=== PATIENT | female | born 1965 | race African-American/Black ===

== ENCOUNTER 2020-08-09 06:32 | Observation (INO) | payer MEDICAID, SELFPAY ==
[~2020-08-09] VITALS: Ht 170.2 cm; Wt 80.8 kg
[2020-08-09] MEDS ORDERED: NS 500 ML IV ONE (07:15)
[2020-08-09 07:42] LABS: BASO % 0.2 % (0.0-1.0); EOS # 0.1 10^3/uL (0.0-0.5); EOS % 0.8 % (0.0-3.0); HEMATOCRIT 34.3 % (36.0-47.0); HEMOGLOBIN 10.1 g/dl (12.0-15.5); LYMPH # 1.5 10^3/uL (1.5-5.0); LYMPH % 24.8 % (24.0-44.0); MEAN CORPUSCULAR HEMOGLOBIN 25.3 pg (27.0-33.0); MEAN CORPUSCULAR HGB CONC 29.4 g/dl (32.0-36.5); MONO # 0.8 10^3/uL (0.0-0.8); MONO % 13.3 % (0.0-5.0); NEUTROPHILS # 3.6 10^3/uL (1.5-8.5); NEUTROPHILS % 60.7 % (36.0-66.0); PLATELET COUNT, AUTOMATED 236 10^3/uL (150-450); RED BLOOD COUNT 3.99 10^6/uL (4.00-5.40); WHITE BLOOD COUNT 5.9 10^3/uL (4.0-10.0)
[2020-08-09 07:55] LABS: INR 0.98; PARTIAL THROMBOPLASTIN TIME 27.4 SECONDS (24.2-38.5); PROTHROMBIN TIME 13.2 SECONDS (12.5-14.3)
[2020-08-09 08:19] LABS: ALBUMIN 3.3 GM/DL (3.2-5.2); ALT/SGPT 11 U/L (12-78); BILIRUBIN,DIRECT < 0.1 MG/DL (0.0-0.2); BILIRUBIN,TOTAL 0.2 MG/DL (0.2-1.0); FREE T4 1.07 NG/DL (0.76-1.46); LIPASE 209 U/L (73-393); TOTAL PROTEIN 7.4 GM/DL (6.4-8.2)
--- NOTE | 2020-08-09 08:19 | REP ---
INDICATION: CHEST PAIN COMPARISON: None. TECHNIQUE: Portable AP view of the chest FINDINGS: The mediastinum and cardiac silhouette are stable and within normal limits for portable technique. The lung valiente are clear without acute consolidation, effusion, or pneumothorax. Skeletal structures are intact. IMPRESSION: No acute cardiopulmonary process appreciated. <Electronically signed by Martir Marion > 08/09/20 0806
[2020-08-09] MEDS ORDERED: MOM 30ML SUSPENSION UDC PO PRN (08:45)
[2020-08-09] MEDS ORDERED: ACETAMINOPHEN TAB 650MG DOSE (2X325MG) PO PRN (08:45)
[2020-08-09] MEDS: ENOXAPARIN 40MG/0.4ML SYRINGE (J1650 PER 10MG) SC SCH (09:41)
[2020-08-09 12:45] VITALS: BP 128/66
--- NOTE | 2020-08-09 14:34 | HPEPDOC ---
[facility] Medical History & Physical Date of Admission Aug 09, 2020 Date of Service: Aug 09, 2020 Attending Physician: DONNELL LUNDY MD History and Physical CHIEF COMPLAINT: Near syncope HISTORY OF PRESENT ILLNESS: 55 yo W with no significant past medical history who recently moved to [place] to live with her daughter who is active in 09/2019 who presented from home with near syncopal episode with prodromal weakness, feeling cold while sweating for a brief moment and felt unwell when she got up to urinate such that she told her daughter she needed to come to the hospital and was brought in by EMS. On probing more, she reports that she has had these near syncopal episodes a few times now especially when exerting especially when straining to defecate. She also reported some supra-pelvic/lower abdominal pain that sometimes take away her breath. She otherwise denies any history of LE edema, palpitations, chest pain, SOB, fever, chills, diarrhea. In the ED, she is hemodynamically stable, afebrile and breathing comfortably on room air. She had an EKG done in the ED that showed 1st degree HB and Morbitz type 1 block and suspicion by the ED physician of type II block. She called Dr. Grijalva who clarified that given the narrow complex QRS this is unlikely to be Morbitz II. Nonetheless he recommended admission to medicine for at least telemetry monitoring and cardiology consult. Troponin was negative, respiratory panel was negative for covid-19, WBC 5.9, Hgb 10.1, platelets 236, LFTs wnl, TSH and free T4 wnl. She had a CXR that was negative for acute pathology. PAST MEDICAL HISTORY: No significant past medical history PAST SURGICAL HISTORY: None SOCIAL HISTORY: Originally from [place]. Moved to [place] from [place]. Lives with her daughter who is active . No smoking, no alcohol, no illicit drug use. FAMILY HISTORY: Mother had HTN. ALLERGIES: Please see below. REVIEW OF SYSTEMS: Pertinent positives as stated above. All other elements of the 12 point ROS were negative otherwise. HOME MEDICATIONS: Please see below. PHYSICAL EXAMINATION: VITAL SIGNS: HDS, normotensive, HR 68, afebrile, 100% on room air. GENERAL APPEARANCE: Well appearing woman, NAD HEENT: NCAT, wearing a hair bonnet, PERRLA, EOMI, MMM, with face mask she re moved for examination CARDIOVASCULAR: RRR, with some skipped beats, no m/r/g LUNGS: CTAB ABDOMEN: Normoactive sounds, no flank pain, soft however with fullness at RLQ, tender suprapubis/pelvic area, no rebound EXTREMITIES: WWP, no LE edema NEUROLOGICAL: CN 2-12 intact, moving all extremities PSYCHIATRIC: AOx3 LABORATORY DATA: summarized above IMAGING: as described above MICROBIOLOGY: Please see below. ASSESSMENT: 55 yo W with no known past medical history who presented with near syncope reporting rare similar events in the past two years and found to be in 1st degree HB with some Wenkebach who is now being admitted for telemetry monitoring and workup, as well as abdominal pain. PLAN: Near syncope: appears to be cardiac, most likely vagal response given the history -Telemetry -TTE -has pacing pads on -cardiology consult with Dr. Grijalva -check BMP and Mag Abdominal pain with R sided fullness: -CT A/P -f/u GI panel sent in the ED -UA negative -f/u BMP DVT ppx: lovenox Dispo: medsurg with tele Vital Signs Vital Signs Date Time Temp Pulse Resp B/P (MAP) Pulse Ox O2 Delivery O2 Flow Rate FiO2 08/09/20 12:45 98.0 73 18 128/66 (86) 100 Room Air Laboratory Data Labs 24H Laboratory Tests 2 08/09/20 07:17: Immature Granulocyte % (Auto) 0.2, Neutrophils (%) (Auto) 60.7, Lymphocytes (%) (Auto) 24.8, Monocytes (%) (Auto) 13.3H, Eosinophils (%) (Auto) 0.8, Basophils (%) (Auto) 0.2, Neutrophils # (Auto) 3.6, Lymphocytes # (Auto) 1.5, Monocytes # (Auto) 0.8, Eosinophils # (Auto) 0.1, Basophils # (Auto) 0.0, Nucleated Red Blood Cells % (auto) 0.0, Prothrombin Time 13.2, Prothromb Time International Ratio 0.98, Activated Partial Thromboplast Time 27.4, Total Bilirubin 0.2, Direct Bilirubin < 0.1, Aspartate Amino Transf (AST/SGOT) 14, Alanine Aminotransferase (ALT/SGPT) 11L, Alkaline Phosphatase 76, Total Protein 7.4, Albumin 3.3, Albumin/Globulin Ratio 0.8L, Lipase 209, Thyroid Stimulating Hormone (TSH) 3.130, Free Thyroxine 1.07, Coronavirus (COVID-19)(PCR) NEGATIVE 08/09/20 08:59: Urine Color STRAW, Urine Appearance CLEAR, Urine pH 6.0, Urine Specific Man[place] 1.003, Urine Protein NEGATIVE, Urine Glucose (UA) NEGATIVE, Urine Ketones NEGATI VE, Urine Blood NEGATIVE, Urine Nitrite NEGATIVE, Urine Bilirubin NEGATIVE, Urine Urobilinogen 0.2, Urine Leukocyte Esterase NEGATIVE, Urine WBC (Auto) 0, Urine RBC (Auto) 0, Urine Hyaline Casts (Auto) 0, Urine Bacteria (Auto) NEGATIVE, Urine Squamous Epithelial Cells 1, Urine Sperm (Auto) CBC/BMP Laboratory Tests 08/09/20 07:17 Microbiology Microbiology 08/09/20 Campylobacter (PCR), Received Pending 08/09/20 Clostridium difficile Toxin A&B PCR, Received Pending 08/09/20 Plesiomonas shigelloides (PCR), Received Pending 08/09/20 Salmonella (PCR)(RAY), Received Pending 08/09/20 Vibrio Species (PCR), Received Pending 08/09/20 Vibrio Cholerae (PCR), Received Pending 08/09/20 Yersinia enterocolitica (PCR), Received Pending 08/09/20 Enteroaggregative E. coli (PCR), Received Pending 08/09/20 Enteropathogenic E. coli (PCR), Received Pending 08/09/20 Enterotoxigenic E. coli (PCR), Received Pending 08/09/20 E. coli Shiga-like Toxin (PCR), Received Pending 08/09/20 Escherichia coli 0157 (PCR), Received Pending 08/09/20 Enteroinvasive E. coli/Shigella PCR, Received Pending 08/09/20 Cryptosporidium (PCR), Received Pending 08/09/20 Cyclospora cayetanensis (PCR), Received Pending 08/09/20 Entamoeba histolytica (PCR), Received Pending 08/09/20 Giardia lamblia (PCR), Received Pending 08/09/20 Adenovirus Type F 40/41 (PCR), Received Pending 08/09/20 Astrovirus (PCR), Received Pending 08/09/20 Norovirus GI/GII (PCR), Received Pending 08/09/20 Rotavirus A (PCR), Received Pending 08/09/20 Sapovirus I/II/IV/V (PCR), Received Pending Home Medications No Active Prescriptions or Reported Meds Allergies Coded Allergies: No Known Allergies (Unverified , 08/09/20) A-FIB/CHADSVASC A-FIB History Current/History of A-Fib/PAF?: No Current PO Anticoag Therapy: No Age/Risk Factor Scoring CHADSVASC: CHADSVASC Response (Comments) Value Age Risk Factor Age < 65 years old 0 Gender Risk Factor Female 1 Hx of CHF No 0 Hx of HTN No 0 Hx of Stroke/TIA/or VTE No 0 Hx of Diabetes No 0 Hx of Vascular Disease No 0 Total 1 Treatment Treatment ordered: NONE Reason Anticoagulant not given: Not indicated/[id number] DONNELL LUNDY MD Aug 09, 2020 14:34
[2020-08-09 16:01] LABS: BLOOD UREA NITROGEN 11 MG/DL (7-18); CALCIUM LEVEL 8.9 MG/DL (8.5-10.1); CARBON DIOXIDE LEVEL 26 MEQ/L (21-32); CHLORIDE LEVEL 112 MEQ/L (98-107); CREATININE FOR GFR 0.82 MG/DL (0.55-1.30); GLOMERULAR FILTRATION RATE > 60.0 (>51); GLUCOSE, FASTING 90 MG/DL (70-100); POTASSIUM SERUM 4.2 MEQ/L (3.5-5.1); SODIUM LEVEL 143 MEQ/L (136-145)
--- NOTE | 2020-08-09 17:25 | REP ---
INDICATION: abdominal pain COMPARISON: None TECHNIQUE: Axial noncontrast images from the lung bases to the pubic symphysis with coronal and sagittal reformations. This CT examination was performed using the following dose reduction techniques: Automated exposure control, adjustment of mA and/or kv according to the patient's size, and use of iterative reconstruction technique. FINDINGS: Lung bases are clear. Visualized heart and pericardium normal. Liver, spleen, pancreas, gallbladder, bilateral adrenal glands and kidneys are normal. The enteric system is unremarkable and without obstruction or acute inflammatory process. Normal terminal ileum and appendix identified in the right lower quadrant. Pelvis demonstrates normal bladder. Enlarged heterogeneous myomatous uterus measures greater than 16.6 x 10.5 x 9.0 cm. No ascites. No free air. No adenopathy. No focal inflammatory stranding. Abdominal aorta without aneurysm. Musculoskeletal structures are intact and without acute osseous abnormality. IMPRESSION: 1. Enlarged heterogeneous myomatous uterus. 2. No further acute abdominopelvic pathology appreciated. <Electronically signed by Martir Marion > 08/09/20 [id number]
--- NOTE | 2020-08-09 19:14 | ECGEPIP ---
[facility] - ED Test Date: 2020-08-09 Pat Name: DENNIS GRANADOS Department: Room: - Gender: Female Recovery Agent: eloy : 1965 Requested By: Hadyen Braga Order Number: [id number] Reading MD: Iva Stone Measurements Intervals Maybeury Rate: 52 P: 53 HI: 237 QRS: 4 QRSD: 77 T: 18 QT: 424 QTc: 397 Interpretive Statements SINUS BRADYCARDIA WITH FIRST DEGREE AV BLOCK WITH OCCASIONAL SUPRAVENTRICULAR MOBITZ TYPE [address] T WAVE CHANGES DELAYED R WAVE PROGRESSION NO PRIOR ECG FOR COMPARISON Electronically Signed on 08-09-2020 19:14:23 EST by Iva Stone
[2020-08-09 22:00] VITALS: BP 150/80
[2020-08-10 06:00] VITALS: BP 125/69
[2020-08-10 06:27] LABS: HEMATOCRIT 34.4 % (36.0-47.0); HEMOGLOBIN 10.3 g/dl (12.0-15.5); MEAN CORPUSCULAR HEMOGLOBIN 25.4 pg (27.0-33.0); MEAN CORPUSCULAR HGB CONC 29.9 g/dl (32.0-36.5); MEAN CORPUSCULAR VOLUME 84.7 fl (80.0-96.0); PLATELET COUNT, AUTOMATED 240 10^3/uL (150-450); RED BLOOD COUNT 4.06 10^6/uL (4.00-5.40); WHITE BLOOD COUNT 4.1 10^3/uL (4.0-10.0)
[2020-08-10 06:55] LABS: BLOOD UREA NITROGEN 11 MG/DL (7-18); CALCIUM LEVEL 8.8 MG/DL (8.5-10.1); CARBON DIOXIDE LEVEL 26 MEQ/L (21-32); CHLORIDE LEVEL 110 MEQ/L (98-107); CREATININE FOR GFR 0.88 MG/DL (0.55-1.30); GLOMERULAR FILTRATION RATE > 60.0 (>51); GLUCOSE, FASTING 93 MG/DL (70-100); MAGNESIUM LEVEL 1.9 MG/DL (1.8-2.4); SODIUM LEVEL 142 MEQ/L (136-145)
[2020-08-10] MEDS: ENOXAPARIN 40MG/0.4ML SYRINGE (J1650 PER 10MG) SC SCH (09:00)
--- NOTE | 2020-08-10 09:37 | DS.PDOC ---
Discharge Summary General Date of Admission Aug 09, 2020 at 06:33 Date of Discharge 08/10/2020 Attending Physician: DONNELL LUNDY MD Discharge Summary PROCEDURES PERFORMED DURING STAY: None ADMITTING DIAGNOSES: 1. Near syncope 2. Abdominal pain DISCHARGE DIAGNOSES: 1. Vasovagal presyncope with noted first degree and Morbitz I HB 2. Abdominal pain with noted enlarge heterogeneous myomatous uterus. 3. Anemia COMPLICATIONS/CHIEF COMPLAINT: Near Syncope. HISTORY OF PRESENT ILLNESS: 55 yo W with no significant past medical history who recently moved to [place] to live with her daughter who is active in 09/2019 who presented from home with near syncopal episode with prodromal weakness, feeling cold while sweating for a brief moment and felt unwell when she got up to urinate such that she told her daughter she needed to come to the hospital and was brought in by EMS. On probing more, she reported that she has had these near syncopal episodes a few times now especially when exerting especially when straining to defecate. She also reported some supra-pelvic/lower abdominal pain that sometimes take away her breath. She otherwise denied any history of LE edema, palpitations, chest pain, SOB, fever, chills, diarrhea. HOSPITAL COURSE: In the ED, she was hemodynamically stable, afebrile and breathing comfortably on room air. She had an EKG done in the ED that showed 1st degree HB and Morbitz type 1 block and suspicion by the ED physician of type II block. She called Dr. Grijalva who clarified that given the narrow complex QRS it was highly unlikely to be Morbitz II. Nonetheless he recommended admission to medicine for at least telemetry monitoring. Troponin was negative, respiratory panel was negative for covid-19, WBC 5.9, Hgb 10.1, platelets 236, LFTs wnl, TSH and free T4 wnl. She had a CXR that was negative for acute pathology. Given the history of her near syncope, I ordered a TTE that was completed but report is still pending. Tele metry was unremarkable with previously recorded 1st degree HB and episodes of Wenkebach and she remained asymptomatic. Given her abdominal complaints and R sided abdominal fullness, I did a CT A/P that showed an enlarged heterogeneous myomatous uterus. I am therefore referring her to gynecology for further evaluation upon discharge. I am also referring her to cardiology for follow up with Dr. Grijalva. Of note, she was also incidentally found to be anemic and I am referring her to the resident clinic to establish a PCP for outpatient anemia workup. ROS was negative for suggestions of GIB, vaginal bleeding or hematuria. DISCHARGE MEDICATIONS: Please see below. ALLERGIES: Please see below. PHYSICAL EXAMINATION ON DISCHARGE: VITAL SIGNS: Please see below. VITAL SIGNS: HDS, normotensive, HR 68, afebrile, 100% on room air. GENERAL APPEARANCE: Well appearing woman, NAD HEENT: NCAT, wearing a hair bonnet, PERRLA, EOMI, MMM, with face mask she removed for examination CARDIOVASCULAR: RRR, with some skipped beats, no m/r/g LUNGS: CTAB ABDOMEN: Normoactive sounds, no flank pain, soft however with fullness at RLQ, tender suprapubis/pelvic area, no rebound EXTREMITIES: WWP, no LE edema NEUROLOGICAL: CN 2-12 intact, moving all extremities PSYCHIATRIC: AOx3 LABORATORY DATA: Please see below. IMAGING: CT A/P: Lung bases are clear. Visualized heart and pericardium normal. Liver, spleen, pancreas, gallbladder, bilateral adrenal glands and kidneys are normal. The enteric system is unremarkable and without obstruction or acute inflammatory process. Normal terminal ileum and appendix identified in the right lower quadrant. Pelvis demonstrates normal bladder. Enlarged heterogeneous myomatous uterus measures greater than 16.6 x 10.5 x 9.0 cm. No ascites. No free air. No adenopathy. No focal inflammatory stranding. Abdominal aorta without aneurysm. Musculoskeletal structures are intact and without acute osseous abnormality. IMPRESSION: 1. Enlarged heterogeneous myomatous uterus. 2. No further acute abdominopelvic pathology appreciated. CXR: No acute cardiopulmonary process appreciated. PROGNOSIS: Good ACTIVITY: As tolerated DIET: Regular DISCHARGE PLAN: Home with establishment of a PCP (resident clinic referral), nurse gynecology referral and cardiology referral DISPOSITION: Home DISCHARGE INSTRUCTIONS: 1. Home with establishment of a PCP (resident clinic referral), nurse gynecology referral and cardiology referral ITEMS TO FOLLOWUP ON ON OUTPATIENT: 1. Presyncope episodes, appear to be vagal, f/u with cardiology 2. Anemia workup with PCP 3. Enlarged heterogeneous myomatous uterus f/u with gynecology DISCHARGE CONDITION: Stable TIME SPENT ON DISCHARGE: 48 minutes. Vital Signs/I&Os Vital Signs Date Time Temp Pulse Resp B/P (MAP) Pulse Ox O2 Delivery O2 Flow Rate FiO2 08/10/20 06:00 98.9 67 17 125/69 (87) 99 Room Air I&O- Last 24 Hours up to 6 AM 08/10/20 06:00 Intake Total 1220 ml Output Total 900 ml Balance 320 ml Laboratory Data Labs 24H Laboratory Tests 2 08/09/20 15:11: D-Dimer, Quantitative < 270, Anion Gap 5L, Glomerular Filtration Rate > 60.0, Calcium Level 8.9 08/10/20 05:32: Anion Gap 6L, Glomerular Filtration Rate > 60.0, Calcium Level 8.8, Nucleated Red Blood Cells % (auto) 0.0, Magnesium Level 1.9 CBC/BMP Laboratory Tests 08/09/20 15:11 08/10/20 05:32 Microbiology Microbiology 08/09/20 Campylobacter (PCR), Received Pending 08/09/20 Clostridium difficile Toxin A&B PCR, Received Pending 08/09/20 Plesiomonas shigelloides (PCR), Received Pending 08/09/20 Salmonella (PCR)(RAY), Received Pending 08/09/20 Vibrio Species (PCR), Received Pending 08/09/20 Vibrio Cholerae (PCR), Received Pending 08/09/20 Yersinia enterocolitica (PCR), Received Pending 08/09/20 Enteroaggregative E. coli (PCR), Received Pending 08/09/20 Enteropathogenic E. coli (PCR), Received Pending 08/09/20 Enterotoxigenic E. coli (PCR), Received Pending 08/09/20 E. coli Shiga-like Toxin (PCR), Received Pending 08/09/20 Escherichia coli 0157 (PCR), Received Pending 08/09/20 Enteroinvasive E. coli/Shigella PCR, Received Pending 08/09/20 Cryptosporidium (PCR), Received Pending 08/09/20 Cyclospora cayetanensis (PCR), Received Pending 08/09/20 Entamoeba histolytica (PCR), Received Pending 08/09/20 Giardia lamblia (PCR), Received Pending 08/09/20 Adenovirus Type F 40/41 (PCR), Received Pending 08/09/20 Astrovirus (PCR), Received Pending 08/09/20 Norovirus GI/GII (PCR), Received Pending 08/09/20 Rotavirus A (PCR), Received Pending 08/09/20 Sapovirus I/II/IV/V (PCR), Received Pending Discharge Medications No Active Prescriptions or Reported Meds Allergies Coded Allergies: No Known Allergies (Unverified , 08/09/20) DONNELL LUNDY MD Aug 10, 2020 09:37
--- NOTE | 2020-08-12 07:18 | ECHO ---
DATE OF PROCEDURE: 08/09/2020 Age: 55 Gender: Female Height: 67 inches Weight: 178 pounds Body surface area: 1.93 m2 PATIENT LOCATION: Inpatient [address] [place] [address], Room 4224. REFERRING PHYSICIAN: Karen Wolf M.D. INDICATION: Syncope. MEASUREMENTS: 2D Measurements: RV 3.1 cm LV 4.0 cm Septum 1.1 cm Posterior wall 1.1 cm Aortic Root 3.2 cm LA 3.6 cm LVEF 75% Doppler Measurements: AV 1.36 m/s LVOT 0.92 m/s LVOT diameter 1.8 cm MV-E 84, A 62, E/A ratio 1.4 Early mitral deceleration time 174 msec E prime medial 9.6, A prime medial 9, E prime lateral 11.4 PV 0.9 m/s Pulmonary artery acceleration time 124 msec RVSP 26 mmHg IVC 1.6 cm COMMENTS: Normal sinus rhythm with first-degree AV block, but no intraventricular conduction disturbance. M-mode and two-dimensional echocardiography was performed with pulse, continuous wave, color flow, and tissue Doppler studies. Normal left ventricular size, wall thickness, and hyperkinetic wall motion. Normal left atrial size and Doppler assessment of LV diastolic function and estimated mean left atrial pressure. Normal right heart chamber sizes and motion and estimated pulmonary arterial pressure. Normal IVC size and collapse against an elevated central venous pressure. Normal aortic dimensions. Normal appearing and functioning aortic valve. Normal appearing and functioning mitral valve with trace insufficiency. Normal appearing and functioning tricuspid valve with mild (physiologic) insufficiency. No apparent intracardiac mass. Small pericardial effusion measuring 0.6 cm posteriorly and 0.8 cm anteriorly without evidence of cardiac chamber compression. Normal IVC size and collapse is also against cardiac compression. Unable to detect a structural or functional abnormality to account for the patients syncopal spell. MTDD
== END 2020-08-10 11:31 | disposition home or self-care (01) ==
LOC: M ED 06:32 → M ED INP 06:33 → ENRESERV 11:48 → M MSPAV 12:43
PROVIDERS: ADMIT Internal Medicine; ATTEND Internal Medicine
DX: I44.1 Atrioventricular block, second degree (principal); R10.9 Unspecified abdominal pain; N85.8 Other specified noninflammatory disorders of uterus; D64.9 Anemia, unspecified
CPT/HCPCS: 36415; 71045; 74176; 80047; 80048; 80076; 81001; 83690; 83735; 84439; 84443; 85025; 85027; 85379; 85610; 85730; 87507; 93005; 93041; 93306; 94760; 96374; 99285; J1650; U0002

== ENCOUNTER → 2020-09-10 | Outpatient (REF) | payer OTHER ==
[2020-09-10 15:48] LABS: BASO % 0.4 % (0.0-1.0); EOS % 0.9 % (0.0-3.0); HEMATOCRIT 38.5 % (36.0-47.0); HEMOGLOBIN 11.3 g/dl (12.0-15.5); LYMPH # 1.6 10^3/uL (1.5-5.0); LYMPH % 35.1 % (24.0-44.0); MEAN CORPUSCULAR HEMOGLOBIN 25.5 pg (27.0-33.0); MEAN CORPUSCULAR HGB CONC 29.4 g/dl (32.0-36.5); MEAN CORPUSCULAR VOLUME 86.7 fl (80.0-96.0); MONO # 0.6 10^3/uL (0.0-0.8); MONO % 13.1 % (0.0-5.0); NEUTROPHILS # 2.3 10^3/uL (1.5-8.5); NEUTROPHILS % 50.3 % (36.0-66.0); PLATELET COUNT, AUTOMATED 233 10^3/uL (150-450); RED BLOOD COUNT 4.44 10^6/uL (4.00-5.40); WHITE BLOOD COUNT 4.6 10^3/uL (4.0-10.0)
[2020-09-10 16:06] LABS: HEMOGLOBIN A1c 6.4 %
[2020-09-10 16:23] LABS: ALBUMIN 3.7 GM/DL (3.2-5.2); ALT/SGPT 17 U/L (12-78); BILIRUBIN,TOTAL 0.4 MG/DL (0.2-1.0); BLOOD UREA NITROGEN 12 MG/DL (7-18); CALCIUM LEVEL 9.6 MG/DL (8.5-10.1); CARBON DIOXIDE LEVEL 30 MEQ/L (21-32); CHLORIDE LEVEL 106 MEQ/L (98-107); CHOLESTEROL LEVEL 210 MG/DL (<200); CHOLESTEROL RISK RATIO 2.359 (<5); CREATININE FOR GFR 0.94 MG/DL (0.55-1.30); FERRITIN 6 NG/ML (8-252); FREE T4 0.94 NG/DL (0.76-1.46); GLOMERULAR FILTRATION RATE > 60.0 (>51); GLUCOSE, FASTING 87 MG/DL (70-100); HDL CHOLESTEROL 89 MG/DL (>40); LDL CHOLESTEROL 111 MG/DL (<100); NON-HDL-C 121 MG/DL; SODIUM LEVEL 139 MEQ/L (136-145); TOTAL PROTEIN 8.2 GM/DL (6.4-8.2); TRIGLYCERIDES LEVEL 48 MG/DL (<150)
== END ==
LOC: M SFHCPLAZ 14:22
PROVIDERS: ATTEND Nurse Practitioner Family
DX: D64.9 Anemia, unspecified (principal); Z13.228 Encounter for screening for other metabolic disorders; Z13.220 Encounter for screening for lipoid disorders

== ENCOUNTER → 2020-09-20 | Outpatient (CLI) | payer OTHER ==
--- NOTE | 2020-09-20 15:09 | REPMRS ---
Patient History The patient states she has not had a clinical breast exam in over a year. No known family history of cancer. 3D TOMOSYNTHESIS WAS PERFORMED. [facility] lifetime risk for breast cancer is 8.0%. Volpara breast density b. Digital Woman Screen Mammo: September 20, 2020 - Exam #: [id number] Bilateral CC and MLO view(s) were taken. Technologist: Jada Dugan Technologist FINDINGS: There are scattered fibroglandular densities. There is a mild amount of residual fibroglandular tissue which is fairly symmetric. There is no dominant mass, architectural distortion, or clustered microcalcification suggestive of malignancy. Assessment: BI-RADS/ACR category 1 mammogram. Negative Mammogram. Recommendation Routine screening mammogram in 1 year (for women over age 40). This mammogram was interpreted with the aid of an FDA-approved computer-aided dectection system. Electronically Signed By: Candido Marcus MD 09/20/20 [id number]
== END ==
LOC: M WHC 14:20
PROVIDERS: ATTEND Nurse Practitioner Family
DX: Z12.31 Encounter for screening mammogram for malignant neoplasm of breast (principal)

== ENCOUNTER → 2020-12-18 | Outpatient (REF) | payer OTHER, MEDICAID | LOC: M SFHCWAGY 11:42 | PROVIDERS: ATTEND Nurse Practitioner Women's Health | DX: N93.9 Abnormal uterine and vaginal bleeding, unspecified (principal) ==

== ENCOUNTER → 2020-12-20 | Outpatient (CLI) | payer OTHER ==
--- NOTE | 2020-12-20 08:29 | REP ---
INDICATION: D21.9 LEIOMYOMA COMPARISON: None. TECHNIQUE: Transabdominal pelvic ultrasound followed by transvaginal examination for better evaluation of the endometrium and adnexa with color Doppler evaluation of the ovaries. FINDINGS: Bladder is collapsed. Enlarged heterogeneous myomatous uterus measures greater than 11.9 x 7.9 x 8.0 cm. Three discrete fibroids are identified measuring 3.0 x 1.8 x 2.9 cm along the right side of the uterus, 6.7 x 5.8 x 56.5 cm at the mid uterus, and 1.6 x 1.0 x 1.6 cm along the anterior lower uterus. The endometrial complex is incompletely evaluated due to mass effect from myomatous changes although a small amount of endocervical fluid is suggested in the lower uterine segment. Bilateral ovaries are not visualized on either transabdominal or transvaginal imaging. Small amount of fluid identified in the posterior cul-de-sac is nonspecific and likely physiologic. IMPRESSION: Significant myomatous changes to the uterus which distort the endometrial complex. <Electronically signed by Martir Marion > 12/20/20 [id number]
== END ==
LOC: M WHC 07:23
PROVIDERS: ATTEND Nurse Practitioner Women's Health
DX: D21.9 Benign neoplasm of connective and other soft tissue, unspecified (principal)

== ENCOUNTER → 2021-03-15 | Outpatient (CLI) | payer SELFPAY | LOC: M LABSMTC 09:23 | PROVIDERS: ATTEND Pediatrics | DX: Z11.52 Encounter for screening for COVID-19 (principal) ==